=== PATIENT | female | born 1945 | race African-American/Black ===

== ENCOUNTER 2022-02-23 16:03 | Inpatient (IN) | payer MEDICARE, OTHER ==
[~2022-02-23] VITALS: Ht 165.1 cm; Wt 81.2 kg
[~2022-02-23 16:03] MED LIST: LISI40TA13 MT; SIMV-46 MT
[2022-02-23 19:07] LABS: HEMATOCRIT. 29.9 % (36.0-48.0); HEMOGLOBIN. 9.9 g/dL (12.0-16.0); MEAN CORPUSCULAR HEMOGLOBIN 29.8 pg (28.0-32.0); PLATELET 267 x1000/uL (130-400); RED BLOOD CELL COUNT 3.32 mill/uL (4.2-5.4); RED CELL DISTRIBUTION WIDTH 14.6 % (11.6-14.6)
[2022-02-23 19:12] LABS: CHLORIDE 98 mEq/L (98-107)
[2022-02-23 19:30] LABS: PLATELET ESTIMATE NORMAL
[2022-02-23] MEDS ORDERED: CALCIUM GLUCONATE 1GM PREMIX 50 ML IV ONE (22:00)
[2022-02-24] MEDS ORDERED: ONDANSETRON HCL 4MG/2ML INJ IV PRN (09:30)
[2022-02-24] MEDS: ACETAMINOPHEN 325MG TABLET PO PRN (10:01)
[2022-02-24 12:00] VITALS: BP 125/70
[2022-02-24] MEDS ORDERED: METHOTREXATE SODIUM 2 . 5MG TABLET PO SCH (14:00)
[2022-02-24] MEDS: FOLIC ACID 1MG TABLET PO SCH (14:22)
[2022-02-24] MEDS: PREDNISONE 20MG TABLET PO SCH (14:23)
[2022-02-24] MEDS: PANTOPRAZOLE 40MG DR TABLET PO SCH (14:23)
[2022-02-24 16:00] VITALS: BP 140/72
[2022-02-24 20:00] VITALS: BP 124/68
[2022-02-25] VITALS: BP 139/56
[2022-02-25 04:00] VITALS: BP 132/61
[2022-02-25] MEDS: PANTOPRAZOLE 40MG DR TABLET PO SCH (06:45)
[2022-02-25 08:00] VITALS: BP 133/71
[2022-02-25] MEDS: PREDNISONE 20MG TABLET PO SCH (09:32)
[2022-02-25] MEDS: FOLIC ACID 1MG TABLET PO SCH (09:33)
[2022-02-25 12:00] VITALS: BP_SYST 144; BP_SYST 152; BP_DIAS 67; BP_DIAS 79
[2022-02-25] MEDS: DOCUSATE SODIUM 250MG CAPSULE PO SCH ×2 (13:48→18:18)
[2022-02-25 16:00] VITALS: BP 152/79
[2022-02-25 16:45] LABS: HEMATOCRIT. 30.6 % (36.0-48.0); HEMOGLOBIN. 10.1 g/dL (12.0-16.0); MEAN CORPUSCULAR HEMOGLOBIN 30.2 pg (28.0-32.0); MEAN CORPUSCULAR VOLUME 91.7 fL (81.0-99.0); MEAN PLATELET VOLUME 8.8 fl (7.4-10.4); PLATELET 266 x1000/uL (130-400); RED BLOOD CELL COUNT 3.34 mill/uL (4.2-5.4); RED CELL DISTRIBUTION WIDTH 14.6 % (11.6-14.6)
[2022-02-25 20:00] VITALS: BP 151/77
[2022-02-25] MEDS ORDERED: NA PHOS,M-B/NA PHOS,DI-BA ENEMA 118ML PR NR (21:30)
[2022-02-25 22:09] LABS: PLATELET ESTIMATE NORMAL
[2022-02-26] VITALS: BP 134/32
[2022-02-26 04:00] VITALS: BP 115/61
[2022-02-26 08:00] VITALS: BP 123/59
[2022-02-26] MEDS: DOCUSATE SODIUM 250MG CAPSULE PO SCH ×2 (09:00→17:00)
[2022-02-26] MEDS: FAMOTIDINE 20MG TABLET PO SCH (10:50)
[2022-02-26] MEDS: PREDNISONE 20MG TABLET PO SCH (10:50)
[2022-02-26] MEDS: FOLIC ACID 1MG TABLET PO SCH (10:50)
[2022-02-26 12:00] VITALS: BP 157/35
[2022-02-26 16:00] VITALS: BP 146/75
[2022-02-26] MEDS: METHYLPREDNISOLONE SOD SUCC 40 MG/ML VIAL IV SCH ×2 (16:30→21:24)
[2022-02-26] MEDS: SODIUM CHLORIDE 0.9% 1,000 ML IV SCH (16:30)
[2022-02-26] MEDS: ACETAMINOPHEN 325MG TABLET PO PRN (19:07)
[2022-02-27] VITALS: BP 129/72
[2022-02-27 04:00] VITALS: BP 130/80
[2022-02-27] MEDS: METHYLPREDNISOLONE SOD SUCC 40 MG/ML VIAL IV SCH (05:44)
[2022-02-27 08:00] VITALS: BP 133/77
[2022-02-27] MEDS: DOCUSATE SODIUM 250MG CAPSULE PO SCH ×2 (09:00→17:00)
[2022-02-27] MEDS: FAMOTIDINE 20MG TABLET PO SCH (11:00)
[2022-02-27] MEDS: FOLIC ACID 1MG TABLET PO SCH (11:00)
[2022-02-27] MEDS: SODIUM CHLORIDE 0.9% 1,000 ML IV SCH (11:15)
[2022-02-27 12:00] VITALS: BP 155/67
[2022-02-27 15:25] LABS: HEMATOCRIT. 27.5 % (36.0-48.0); HEMOGLOBIN. 9.4 g/dL (12.0-16.0); MEAN CORPUSCULAR HEMOGLOBIN 31.2 pg (28.0-32.0); MEAN PLATELET VOLUME 8.8 fl (7.4-10.4); PLATELET 233 x1000/uL (130-400); RED BLOOD CELL COUNT 3.02 mill/uL (4.2-5.4); RED CELL DISTRIBUTION WIDTH 14.9 % (11.6-14.6)
[2022-02-27 15:28] LABS: CHLORIDE 96 mEq/L (98-107)
[2022-02-27 16:01] VITALS: BP 150/77
[2022-02-27 16:27] LABS: PLATELET ESTIMATE NORMAL
[2022-02-27] MEDS ORDERED: METHYLPREDNISOLONE SOD SUCC 40 MG/ML VIAL IV SCH (18:30)
[2022-02-27 20:00] VITALS: BP 165/79
[2022-02-27] MEDS ORDERED: PREDNISONE 20MG TABLET PO SCH (22:00)
[2022-02-28] VITALS: BP 145/60
[2022-02-28 04:00] VITALS: BP 148/74
[2022-02-28] MEDS: ACETAMINOPHEN 325MG TABLET PO PRN (04:40)
[2022-02-28 06:59] LABS: HEMATOCRIT. 27.1 % (36.0-48.0); HEMOGLOBIN. 9.1 g/dL (12.0-16.0); MEAN CORPUSCULAR HEMOGLOBIN 30.5 pg (28.0-32.0); MEAN PLATELET VOLUME 9.2 fl (7.4-10.4); PLATELET 222 x1000/uL (130-400); RED BLOOD CELL COUNT 2.98 mill/uL (4.2-5.4); RED CELL DISTRIBUTION WIDTH 14.8 % (11.6-14.6)
[2022-02-28 07:13] LABS: CHLORIDE 96 mEq/L (98-107)
[2022-02-28] MEDS: SODIUM CHLORIDE 0.9% 1,000 ML IV SCH (07:15)
[2022-02-28 07:36] LABS: CREATINE KINASE 2547 IU/L (26-192)
[2022-02-28 08:00] VITALS: BP 104/80
[2022-02-28] MEDS: DOCUSATE SODIUM 250MG CAPSULE PO SCH ×2 (09:00→17:00)
[2022-02-28 10:47] LABS: PLATELET ESTIMATE NORMAL
[2022-02-28] MEDS: FAMOTIDINE 20MG TABLET PO SCH (10:52)
[2022-02-28] MEDS: PREDNISONE 20MG TABLET PO SCH ×3 (10:52→20:25)
[2022-02-28] MEDS: FOLIC ACID 1MG TABLET PO SCH (10:52)
[2022-02-28] MEDS: PREDNISONE 10MG TABLET PO SCH ×3 (10:52→20:25)
[2022-02-28 12:00] VITALS: BP 132/82
[2022-02-28 16:00] VITALS: BP 113/53
[2022-02-28 20:00] VITALS: BP 155/116
[2022-02-28] MEDS ORDERED: METOPROLOL SUCCINATE 50MG ER TABLET PO SCH (21:00)
[2022-02-28] MEDS: METOPROLOL TARTRATE 50MG TABLET PO SCH (21:02)
[2022-03-01] VITALS (14 sets, daily range): BP systolic 103–146; BP diastolic 58–86
[2022-03-01] MEDS: SODIUM CHLORIDE 0.9% 1,000 ML IV SCH ×2 (03:15→11:13)
[2022-03-01 09:10] LABS: G6PD RBC 2.95 x10E6/uL (3.77-5.28)
[2022-03-01] MEDS ORDERED: LIDOCAINE HCL/PF 1% 10 MG/ML 5ML VIAL ONE (10:05)
[2022-03-01] MEDS: METOPROLOL TARTRATE 50MG TABLET PO SCH ×2 (11:06→21:00)
[2022-03-01] MEDS: FOLIC ACID 1MG TABLET PO SCH (11:07)
[2022-03-01] MEDS: PREDNISONE 10MG TABLET PO SCH ×2 (11:07)
[2022-03-01] MEDS: PREDNISONE 20MG TABLET PO SCH ×2 (11:07)
[2022-03-01] MEDS: FAMOTIDINE 20MG TABLET PO SCH (11:07)
[2022-03-01] MEDS: DOCUSATE SODIUM 250MG CAPSULE PO SCH ×2 (11:13→17:00)
[2022-03-01] MEDS ORDERED: LEVOFLOXACIN 500MG TABLET PO NR (13:00)
[2022-03-01 13:10] LABS: G6PD QUANTITATIVE 407 (127-427)
[2022-03-01] MEDS ORDERED: SODIUM CHLORIDE 0.9% 1,000 ML IV SCH (15:30)
[2022-03-01 15:49] LABS: BG BASE EXCESS -5.3 mmol/L (-2.0-2.0); BG CARBOXYHEMOGLOBIN 0.3 % (0.5-1.5); BG DEOXYHEMOGLOBIN 6.7 % (0.0-5.0); BG FRACTION INSPIRED OXYGEN 28; BG HCO3 ACT 18.8 mmol/L (22.0-26.0); BG METHEMOGLOBIN 0.3 % (0.0-1.5); BG OXYGEN SATURATION 93.3 % (92.0-98.5); BG OXYHEMOGLOBIN 92.7 % (94.0-97.0); BG PCO2 31.2 mmHg (35.0-45.0); BG PH 7.397 (7.350-7.450); BG SAMPLE SITE RIGHT RADIAL; BG TOTAL HEMOGLOBIN 9.5 g/dL (12.0-18.0); BG VENT MODE NASAL CANNULA
[2022-03-01] MEDS ORDERED: PREDNISONE 20MG TABLET PO SCH (16:00)
[2022-03-01] MEDS ORDERED: PHENYLEPHRINE 50 MG in DEXT 5% WATER 245 ML IV PRN (16:00)
[2022-03-01] MEDS ORDERED: PREDNISONE 10MG TABLET PO SCH (16:00)
[2022-03-01 16:46] LABS: HEMATOCRIT. 28.6 % (36.0-48.0); MEAN CORPUSCULAR HEMOGLOBIN 30.5 pg (28.0-32.0); MEAN CORPUSCULAR VOLUME 97.4 fL (81.0-99.0); MEAN PLATELET VOLUME 8.8 fl (7.4-10.4); PLATELET 207 x1000/uL (130-400); RED BLOOD CELL COUNT 2.94 mill/uL (4.2-5.4); RED CELL DISTRIBUTION WIDTH 15.8 % (11.6-14.6)
[2022-03-01 16:53] LABS: CHLORIDE 104 mEq/L (98-107)
[2022-03-01 16:59] LABS: CLARITY URINE CLOUDY (CLEAR); COLOR URINE YELLOW (YELLOW); KETONES URINE NEGATIVE (NEGATIVE); LEUKOCYTE ESTERASE URINE 2+ (NEGATIVE); NITRITE URINE NEGATIVE (NEGATIVE); OCCULT BLOOD URINE 3+ (NEGATIVE); PH URINE 5.5 (4.5-8.0); PROTEIN URINE 1+ (NEGATIVE); SPECIFIC GRAVITY URINE 1.019 (1.005-1.030); UROBILINOGEN URINE 0.2 E.U./dL (0.2-1.0)
[2022-03-01] MEDS ORDERED: CEFEPIME 1,000 MG in DEXTROSE 5% WATER 50 ML IV SCH (17:00)
[2022-03-01 17:16] LABS: PLATELET ESTIMATE NORMAL
[2022-03-01] MEDS: METHYLPREDNISOLONE SOD SUCC 40 MG/ML VIAL IV SCH (18:48)
[2022-03-01 20:31] LABS: CREATINE KINASE 4567 IU/L (26-192)
[2022-03-01] MEDS: CEFEPIME 1,000 MG in DEXTROSE 5% WATER 50 ML IV SCH (21:11)
[2022-03-01] MEDS ORDERED: METHYLPREDNISOLONE SOD SUCC 125 MG/2 ML VIAL IV SCH (22:00)
[2022-03-02] VITALS (27 sets, daily range): BP systolic 100–131; BP diastolic 55–89
[2022-03-02] MEDS: METHYLPREDNISOLONE SOD SUCC 40 MG/ML VIAL IV SCH ×4 (00:31→17:07)
[2022-03-02] MEDS: SODIUM CHLORIDE 0.9% 1,000 ML IV SCH ×2 (05:42→14:17)
[2022-03-02] MEDS: FAMOTIDINE 20MG TABLET PO SCH (08:40)
[2022-03-02] MEDS: FOLIC ACID 1MG TABLET PO SCH (08:40)
[2022-03-02] MEDS: METOPROLOL TARTRATE 50MG TABLET PO SCH ×2 (08:40→21:43)
[2022-03-02] MEDS: DOCUSATE SODIUM 250MG CAPSULE PO SCH ×2 (08:40→16:19)
[2022-03-02] MEDS: CEFEPIME 1,000 MG in DEXTROSE 5% WATER 50 ML IV SCH ×2 (08:41→21:43)
[2022-03-02 10:54] LABS: HEMATOCRIT. 23.1 % (36.0-48.0); HEMOGLOBIN. 7.4 g/dL (12.0-16.0); MEAN CORPUSCULAR HEMOGLOBIN 29.7 pg (28.0-32.0); MEAN CORPUSCULAR VOLUME 92.8 fL (81.0-99.0); MEAN PLATELET VOLUME 8.8 fl (7.4-10.4); PLATELET 179 x1000/uL (130-400); RED BLOOD CELL COUNT 2.49 mill/uL (4.2-5.4); RED CELL DISTRIBUTION WIDTH 14.9 % (11.6-14.6)
[2022-03-02] MEDS ORDERED: BISACODYL 10MG SUPP PR NR (11:00)
[2022-03-02] MEDS ORDERED: LEVOFLOXACIN 250MG TABLET PO SCH (11:00)
[2022-03-02 11:04] LABS: CHLORIDE 108 mEq/L (98-107)
[2022-03-02] MEDS: MEGESTROL ACETATE 400 MG/10 ML UDC PO SCH (11:27)
[2022-03-02 12:44] LABS: PLATELET ESTIMATE NORMAL
[2022-03-02] MEDS ORDERED: PANT40TA51 PO (21:01)
[2022-03-02] MEDS ORDERED: PRED10TA23 PO (21:01)
[2022-03-02] MEDS ORDERED: METH2.5T PO (21:01)
[2022-03-02] MEDS ORDERED: FERR-71 PO (21:01)
[2022-03-02] MEDS ORDERED: AMLO10TA80 PO (21:01)
[2022-03-02] MEDS ORDERED: FOLI-43 PO (21:01)
[2022-03-02] MEDS ORDERED: CALC-1042 PO (21:01)
[2022-03-02] MEDS ORDERED: HYDR200T35 PO (21:01)
[2022-03-03] VITALS (12 sets, daily range): BP systolic 113–133; BP diastolic 55–74
[2022-03-03] MEDS: SODIUM CHLORIDE 0.9% 1,000 ML IV SCH ×3 (00:37→19:45)
[2022-03-03] MEDS: METHYLPREDNISOLONE SOD SUCC 40 MG/ML VIAL IV SCH ×5 (00:37→23:00)
[2022-03-03] MEDS: DOCUSATE SODIUM 250MG CAPSULE PO SCH ×2 (08:03→16:08)
[2022-03-03] MEDS: FOLIC ACID 1MG TABLET PO SCH (08:04)
[2022-03-03] MEDS: METOPROLOL TARTRATE 50MG TABLET PO SCH ×2 (08:04→23:00)
[2022-03-03] MEDS: MEGESTROL ACETATE 400 MG/10 ML UDC PO SCH (08:04)
[2022-03-03] MEDS: FAMOTIDINE 20MG TABLET PO SCH (08:04)
[2022-03-03] MEDS: CEFEPIME 1,000 MG in DEXTROSE 5% WATER 50 ML IV SCH ×2 (08:07→23:00)
[2022-03-03 09:10] LABS: ALDOLASE 10.6 U/L (3.3-10.3); ANGIOTENSION CONVERTING ENZYME 23 U/L (14-82)
[2022-03-03] MEDS ORDERED: FUROSEMIDE 40MG/4ML VIAL IVP NR (15:45)
[2022-03-03] MEDS ORDERED: METHOTREXATE SODIUM/PF 50 MG/2 ML VIAL IM SCH (18:00)
[2022-03-04] VITALS (15 sets, daily range): BP systolic 117–143; BP diastolic 59–82
[2022-03-04] MEDS: SODIUM CHLORIDE 0.9% 1,000 ML IV SCH ×2 (05:04→17:25)
[2022-03-04 05:30] LABS: CHLORIDE 113 mEq/L (98-107)
[2022-03-04] MEDS: METHYLPREDNISOLONE SOD SUCC 40 MG/ML VIAL IV SCH ×3 (05:33→17:25)
[2022-03-04] MEDS: FOLIC ACID 1MG TABLET PO SCH (07:56)
[2022-03-04] MEDS: CEFEPIME 1,000 MG in DEXTROSE 5% WATER 50 ML IV SCH ×2 (07:56→21:00)
[2022-03-04] MEDS: METOPROLOL TARTRATE 50MG TABLET PO SCH ×2 (07:57→21:07)
[2022-03-04] MEDS: DOCUSATE SODIUM 250MG CAPSULE PO SCH ×2 (07:57→17:25)
[2022-03-04] MEDS: FAMOTIDINE 20MG TABLET PO SCH (07:57)
[2022-03-04] MEDS: MEGESTROL ACETATE 400 MG/10 ML UDC PO SCH (07:58)
[2022-03-04 09:16] LABS: MEAN CORPUSCULAR HEMOGLOBIN 29.8 pg (28.0-32.0); MEAN PLATELET VOLUME 8.8 fl (7.4-10.4); PLATELET 171 x1000/uL (130-400); RED BLOOD CELL COUNT 2.21 mill/uL (4.2-5.4); RED CELL DISTRIBUTION WIDTH 15.4 % (11.6-14.6)
[2022-03-04 09:20] LABS: HEMATOCRIT. 20.5 % (36.0-48.0); HEMOGLOBIN. 6.6 g/dL (12.0-16.0)
[2022-03-04 11:07] LABS: PLATELET ESTIMATE NORMAL
[2022-03-04 13:06] LABS: ACTIN (SMOOTH MUSCLE) ANTIBODY 9 Units (0-19)
[2022-03-04] MEDS ORDERED: BISACODYL 10MG SUPP PR PRN (16:45)
[2022-03-04] MEDS ORDERED: BISACODYL 5MG TABLET PO PRN (16:45)
[2022-03-04] MEDS: SORBITOL 70% SOLN 30ML PO SCH (17:25)
[2022-03-04 20:55] LABS: HEMATOCRIT 24.2 % (36.0-48.0)
[2022-03-04] MEDS: LEVETIRACETAM 500MG/5ML CUP PO SCH (21:11)
[2022-03-05] VITALS (11 sets, daily range): BP systolic 106–158; BP diastolic 61–83
[2022-03-05] MEDS: SODIUM CHLORIDE 0.9% 1,000 ML IV SCH ×2 (02:03→12:03)
[2022-03-05] MEDS: METHYLPREDNISOLONE SOD SUCC 40 MG/ML VIAL IV SCH ×4 (05:20→18:53)
[2022-03-05 08:07] LABS: TOTAL IRON BINDING CAPACITY 194 ug/dL (250-450)
[2022-03-05] MEDS: DOCUSATE SODIUM 250MG CAPSULE PO SCH (12:50)
[2022-03-05] MEDS: CEFEPIME 1,000 MG in DEXTROSE 5% WATER 50 ML IV SCH ×2 (12:50→21:59)
[2022-03-05] MEDS: SORBITOL 70% SOLN 30ML PO SCH (12:50)
[2022-03-05] MEDS: METOPROLOL TARTRATE 50MG TABLET PO SCH ×2 (12:51→22:00)
[2022-03-05] MEDS: FOLIC ACID 1MG TABLET PO SCH (12:51)
[2022-03-05] MEDS: LEVETIRACETAM 500MG/5ML CUP PO SCH ×2 (12:51→21:59)
[2022-03-05] MEDS: MEGESTROL ACETATE 400 MG/10 ML UDC PO SCH (12:51)
[2022-03-05] MEDS: FAMOTIDINE 20MG TABLET PO SCH (12:52)
[2022-03-05] MEDS: DOCUSATE SODIUM SUGAR FREE 100MG/10ML UDC PO SCH (17:00)
[2022-03-06] VITALS (9 sets, daily range): BP systolic 134–163; BP diastolic 61–86
[2022-03-06] MEDS ORDERED: DEXT 5%/0.9% NACL 1,000 ML IV SCH (00:01)
[2022-03-06] MEDS: METHYLPREDNISOLONE SOD SUCC 40 MG/ML VIAL IV SCH ×4 (00:38→17:43)
[2022-03-06] MEDS: CEFEPIME 1,000 MG in DEXTROSE 5% WATER 50 ML IV SCH ×2 (09:57→21:33)
[2022-03-06] MEDS ORDERED: CEFAZOLIN 1000MG PREMIX 50 ML IV SCH (10:00)
[2022-03-06 10:25] LABS: CHLORIDE 116 mEq/L (98-107); HEMATOCRIT. 27.8 % (36.0-48.0); HEMOGLOBIN. 9.6 g/dL (12.0-16.0); MEAN CORPUSCULAR HEMOGLOBIN 31.9 pg (28.0-32.0); MEAN CORPUSCULAR VOLUME 91.7 fL (81.0-99.0); MEAN PLATELET VOLUME 8.6 fl (7.4-10.4); PLATELET 172 x1000/uL (130-400); RED BLOOD CELL COUNT 3.03 mill/uL (4.2-5.4)
[2022-03-06 10:41] LABS: INR 1.1; PROTHROMBIN TIME 11.8 sec (9.6-11.0)
[2022-03-06] MEDS: DEXTROSE 5% WATER 1,000 ML IV SCH (10:45)
[2022-03-06] MEDS ORDERED: PROPOFOL 200MG/20ML VIAL IV ONE (11:20)
[2022-03-06] MEDS ORDERED: LIDOCAINE HCL 1% 10 MG/ML 10ML VIAL ONE (11:21)
[2022-03-06] MEDS ORDERED: METHOTREXATE SODIUM/PF 50 MG/2 ML VIAL IM SCH (16:00)
[2022-03-06] MEDS: SORBITOL 70% SOLN 30ML PO SCH (16:04)
[2022-03-06] MEDS: DOCUSATE SODIUM SUGAR FREE 100MG/10ML UDC PO SCH ×2 (16:04→17:44)
[2022-03-06] MEDS: MEGESTROL ACETATE 400 MG/10 ML UDC PO SCH (16:06)
[2022-03-06] MEDS: LEVETIRACETAM 500MG/5ML CUP PO SCH ×2 (16:06→21:33)
[2022-03-06] MEDS: FOLIC ACID 1MG TABLET PO SCH (16:06)
[2022-03-06] MEDS: METOPROLOL TARTRATE 50MG TABLET PO SCH ×2 (16:07→21:34)
[2022-03-06] MEDS: PANTOPRAZOLE SODIUM 40 MG/VIAL IV SCH (17:44)
[2022-03-06] MEDS: AMLODIPINE 10MG TABLET PO SCH (18:37)
[2022-03-06 19:06] LABS: ANTI-MYELOPEROXIDASE AB < 0.2 units (0.0-0.9); ANTI-PROTEINASE 3 ABS < 0.2 units (0.0-0.9)
[2022-03-06 21:46] LABS: PLATELET ESTIMATE NORMAL
[2022-03-07] VITALS (9 sets, daily range): BP systolic 145–155; BP diastolic 76–90
[2022-03-07] MEDS: METHYLPREDNISOLONE SOD SUCC 40 MG/ML VIAL IV SCH ×3 (00:58→12:00)
[2022-03-07] MEDS: PANTOPRAZOLE SODIUM 40 MG/VIAL IV SCH ×2 (06:24→12:00)
[2022-03-07] MEDS: METOCLOPRAMIDE HCL 10MG/2ML VIAL IV SCH ×2 (06:25→12:01)
[2022-03-07] MEDS: DEXTROSE 5% WATER 1,000 ML IV SCH (06:52)
[2022-03-07 07:12] LABS: ANA IFA Negative (.)
[2022-03-07] MEDS: MEGESTROL ACETATE 400 MG/10 ML UDC PO SCH (12:00)
[2022-03-07] MEDS: DOCUSATE SODIUM SUGAR FREE 100MG/10ML UDC PO SCH ×2 (12:00→16:51)
[2022-03-07] MEDS: LEVETIRACETAM 500MG/5ML CUP PO SCH (12:00)
[2022-03-07] MEDS: METOPROLOL TARTRATE 50MG TABLET PO SCH (12:01)
[2022-03-07] MEDS: FOLIC ACID 1MG TABLET PO SCH (12:01)
[2022-03-07] MEDS: SORBITOL 70% SOLN 30ML PO SCH (12:01)
[2022-03-07] MEDS: AMLODIPINE 10MG TABLET PO SCH (12:04)
[2022-03-07 13:06] LABS: ATYPICAL P-ANCA <1:20 titer (Neg:<1:20); CYTOPLASMIC C-ANCA <1:20 titer (Neg:<1:20); PERINUCLEAR P-ANCA <1:20 titer (Neg:<1:20)
[2022-03-07] MEDS: ACETAMINOPHEN 325MG TABLET PO PRN (15:46)
[2022-03-07] MEDS ORDERED: CYANOCOBALAMIN 1000MCG/ML VIAL SUBCUT SCH (16:15)
[2022-03-11] MEDS ORDERED: CYANOCOBALAMIN 1000MCG/ML VIAL SUBCUT SCH (09:00)
== END 2022-03-07 17:10 | DRG 545 ==
LOC: ER 16:03 → MICUSO 21:51 → 6EST 02-24 09:30 → CVICU 03-01 15:55 → 5EST 03-02 10:44
PROVIDERS: ADMIT Internal Medicine; ATTEND Internal Medicine
PROC: 02HV33Z Insertion of Infusion Device into Superior Vena Cava, Percutaneous Approach (ICD-10-PCS; 2022-03-01)
PROC: B548ZZA Ultrasonography of Superior Vena Cava, Guidance (ICD-10-PCS; 2022-03-01)
PROC: B5181ZA Fluoroscopy of Superior Vena Cava using Low Osmolar Contrast, Guidance (ICD-10-PCS; 2022-03-01)
PROC: 4A00X4Z Measurement of Central Nervous Electrical Activity, External Approach (ICD-10-PCS; 2022-03-02)
PROC: 30233N1 Transfusion of Nonautologous Red Blood Cells into Peripheral Vein, Percutaneous Approach (ICD-10-PCS; 2022-03-04)
PROC: 0DB78ZX Excision of Stomach, Pylorus, Via Natural or Artificial Opening Endoscopic, Diagnostic (ICD-10-PCS; principal; 2022-03-06)
PROC: 0DH63UZ Insertion of Feeding Device into Stomach, Percutaneous Approach (ICD-10-PCS; 2022-03-06)
PROC: 4A00X4Z Measurement of Central Nervous Electrical Activity, External Approach (ICD-10-PCS; 2022-03-07)
DX: M33.20 Polymyositis, organ involvement unspecified (principal); A41.59 Other Gram-negative sepsis; G93.41 Metabolic encephalopathy; J96.00 Acute respiratory failure, unspecified whether with hypoxia or hypercapnia; K29.71 Gastritis, unspecified, with bleeding; E87.1 Hypo-osmolality and hyponatremia; E44.0 Moderate protein-calorie malnutrition; N39.0 Urinary tract infection, site not specified; E87.0 Hyperosmolality and hypernatremia; R13.14 Dysphagia, pharyngoesophageal phase; E83.51 Hypocalcemia; I10 Essential (primary) hypertension; N28.9 Disorder of kidney and ureter, unspecified; F19.959 Other psychoactive substance use, unspecified with psychoactive substance-induced psychotic disorder, unspecified; M19.90 Unspecified osteoarthritis, unspecified site; Z96.652 Presence of left artificial knee joint; R62.7 Adult failure to thrive; B96.1 Klebsiella pneumoniae [K. pneumoniae] as the cause of diseases classified elsewhere; D64.9 Anemia, unspecified; K44.9 Diaphragmatic hernia without obstruction or gangrene; Z20.822 Contact with and (suspected) exposure to COVID-19; E88.09 Other disorders of plasma-protein metabolism, not elsewhere classified; K22.2 Esophageal obstruction; R74.01 Elevation of levels of liver transaminase levels; Z90.49 Acquired absence of other specified parts of digestive tract; Z88.5 Allergy status to narcotic agent; Z74.01 Bed confinement status; Z68.29 Body mass index [BMI] 29.0-29.9, adult
CPT/HCPCS: 36415; 36573; 36600; 71045; 74018; 76700; 80048; 80053; 81003; 82085; 82164; 82270; 82375; 82550; 82595; 82607; 82728; 82746; 82805; 82955; 82962; 83520; 83540; 83550; 83880; 84134; 84443; 84484; 85014; 85018; 85025; 85041; 85651; 86160; 86235; 86256; 86850; 86900; 86920; 87077; 87186; 87426; 88305; 92610; 93005; 93970; 95816; 97110; 97162; 97530; 99291; A6261; C1725; C1893; C9113; J0610; J0690; J0692; J1940; J2405; J2704; J2765; J2920; J2930; J3490; J7030; J7060; J7070; J7512; J8610; J9260; P9016